=== PATIENT | male | born 1945 | race Caucasian/White ===

== ENCOUNTER → 2025-09-16 07:49 | Outpatient (BNVA) | payer MEDICARE, SELFPAY | PROVIDERS: PCP Family Medicine; Referring Provider Family Medicine; Visit Provider Student in an Organized Health Care Education/Training Program | DX: C44.519 Basal cell carcinoma of skin of other part of trunk (principal) | CPT/HCPCS: 11104 ==

== ENCOUNTER 2025-09-16 08:31 | Outpatient (REF) | payer MEDICARE, SELFPAY ==
--- NOTE | 2025-09-16 08:31 | SKI_PTH ---
PATIENT: John Rangel LOC: N U#:[id number] AGE/SX: 80/M ROOM: RE09/16/[address]: Ashli Sanchez : 1945 BED: DIS: 09/16/2025 SPEC #: [id number] RECD: 09/16/25 16:56 STATUS: TREVOR REQ #: [id number] RHYS: 09/16/25 08:[address]: Ashli Sanchez DEPT: Surgical Specimen RECD BY: Crystal Alexis ENTERED: 09/16/25 16:57 SP TYPE: MENDOZA DE LA FUENTE DR: Jim Juares Tissues: 1 - SKIN BIOPSY(SHAVE/PUNCH) Procedures: SKIN LEVEL 4 Comments: [id number]
== END 2025-09-16 08:32 | disposition home or self-care (01) ==
LOC: LBN 08:31
PROVIDERS: PCP Family Medicine; Visit Provider Student in an Organized Health Care Education/Training Program
DX: C44.519 Basal cell carcinoma of skin of other part of trunk (principal)
CPT/HCPCS: 88305

== ENCOUNTER → 2025-09-30 09:27 | Outpatient (BNVA) | payer MEDICARE, SELFPAY | PROVIDERS: PCP Family Medicine; Referring Provider Family Medicine; Visit Provider Student in an Organized Health Care Education/Training Program | DX: C44.519 Basal cell carcinoma of skin of other part of trunk (principal) | CPT/HCPCS: 99213 ==